=== PATIENT | female | born 2000 ===

== ENCOUNTER 2023-12-14 11:12 | Outpatient (AMB) | payer BC, SELFPAY ==
--- NOTE | 2023-12-14 11:21 | AM.OFFWIN_ITS ---
Intake Vital Signs 12/14/23 11:23 Height 5 ft 2 in Weight 102 lb 2 oz BMI 18.7 BP 118/70 Blood Pressure Location Rt brachial Position Sitting Pulse 76 Pulse Source Pulse Oximeter Temp 97.7 F Temp Source Oral Pulse Oximetry (%) 99 Oxygen Delivery Method Room Air Intake Visit Reasons: EP-chest pain, cold, chills Intake Note: pt is here for chest pain, difficulty breathing, sore chest. patient states it started this morning and at home covid test was negative Patient Tobacco Use Status: Never used Tobacco Allergies No Known Allergies Allergy (Verified 12/14/23 11:25) Do you need a note to return to daycare/school/sports/work: No HPI HPI Comments History of Present Illness Details 23 y/o female [facility]/o URI symptoms that started this morning. Reports Anorexia, upset stomach and diarrhea. Denies fevers, chills but endorses Nausea and vomiting. PFSH Social History Patient Tobacco Use Status: Never used Tobacco Review of Systems Const All systems reviewed & are unremarkable except as noted in HPI and below Physical Exam Vital Signs: Last Vital Signs Temp 97.7 F 12/14/23 11:23 Pulse 76 12/14/23 11:23 BP 118/70 12/14/23 11:23 Pulse Ox 99 12/14/23 11:23 Oxygen Delivery Method Room Air 12/14/23 11:23 BMI result Body Mass Index 18.7 Const General: cooperative and no acute distress Orientation/consciousness: patient oriented x3 HEENT Head: Yes normocephalic Ears: external ears normal and TM abnormal with fluid behind the TM bilateral General nose exam: Normal nasal mucous membranes and turbinates present Face and sinus: Yes sinuses nontender Mouth: moist mucous membranes Resp Effort & Inspection: normal respiratory effort and able to speak in complete sentences Auscultation: clear to auscultation bilaterally, no crackles, no rales, no rhonchi and no wheezes Cardio Heart sounds: S1 normal heart sound present and S2 normal heart sound present Neuro General: patient oriented x3 Assessment & Plan Assessment & Plan (1) Acute respiratory infection: Code(s): J22 - Unspecified acute lower respiratory infection Plan: Rest and hydrate well Acetaminophen for pain relief OTC cold remedies RTC if not better. Orders: Orders SARS-CoV2/FLU/RSV Today J22 - Unspecified acute lower respiratory infection Coding Level of Care Code Est Pt Level 3 (84475) Diagnoses Acute respiratory infection J22 Time Spent (min) 15
[2023-12-14 11:23] VITALS: BP 118/70; PULSE 76; TEMP 36.5; O2SAT 99; BMI 18.7
== END 2023-12-14 11:52 | disposition home or self-care (01) ==
PROVIDERS: Visit Provider Nurse Practitioner Family
DX: J22 Unspecified acute lower respiratory infection (principal)

== ENCOUNTER 2023-12-14 11:12 | Outpatient (REF) | payer BC, SELFPAY ==
[2023-12-14 14:10] LABS: Influenza A PCR NEGATIVE (Negative); Influenza B PCR NEGATIVE (Negative); Resp Syncy Virus RNA Qual PCR NEGATIVE (Negative); SARS COV2 PCR INHOUSE NEGATIVE (Negative)
== END 2023-12-14 11:13 | disposition home or self-care (01) ==
LOC: HO.LAB 11:12
PROVIDERS: Visit Provider Nurse Practitioner Family
DX: J22 Unspecified acute lower respiratory infection (principal)
CPT/HCPCS: 0241U